=== PATIENT | female | born 2005 | race African-American/Black ===

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

== ENCOUNTER 2023-12-20 15:35 | Emergency (ER) | payer OTHER, SELFPAY ==
--- NOTE | ~2023-12-20 | XR_ITS ---
EXAMINATION: XR hand LT min 3V DATE: 12/20/2023 15:56 INDICATION: Left hand injury. TECHNIQUE: 3 views of left hand were obtained. COMPARISON: None. FINDINGS: Bone alignment is normal. No fracture. Joint spaces are normal. IMPRESSION: 1. Normal left hand. Reviewed, dictated and finalized at location A. IMPRESSION: 1. Normal left hand.
[2023-12-20 15:37] VITALS: BP 113/74; PULSE 75; RESP 16; TEMP 36.2; O2SAT 100
--- NOTE | 2023-12-20 16:23 | ED.UPPEXIN ---
HPI - Extremity Injury (Upper) General Chief Complaint: Extremity Injury, Upper Stated Complaint: L 2ND DIGIT WORK INJURY Time Seen by Provider: 12/20/23 15:52 History of Present Illness HPI narrative: Pt smashed right hand between cart and pt bed. Pt complains of right dorsal hand pain and says has trouble moving 3rd and 4th fingers due to pain. Related Data Home Medications Medication Instructions Recorded Confirmed No Home Medications 12/20/23 12/20/23 Allergies Allergy/AdvReac Type Severity Reaction Status Date / Time No Known Allergies Allergy Verified 12/20/23 15:36 Review of Systems Review of Systems: All systems reviewed & are unremarkable except as noted in HPI and below Exam Const: General: healthy appearing and no acute distress Nutritional Appearance: well nourished Orientation/consciousness: patient oriented x3 Resp: Effort & Inspection: normal respiratory effort Cardio: Rate: regular rate Rhythm: regular rhythm Skin: General skin exam: normal color Wounds: no wounds Neuro: General: patient oriented x3, moves all extremities, no meningeal signs and no focal motor deficits Speech: normal speech Extrem: General: normal to inspection and no clubbing, cyanosis or edema Other: tender dorsum of right hand no swelling. Pt able to wiggle fingers but won't fully extend due to pain. Psych: Mental Status: mental status grossly normal Affect: normal affect Attitude: cooperative Course Vital Signs Vital signs: Vital Signs Temperature 97.2 F L 12/20/23 15:37 Pulse Rate 75 12/20/23 15:37 Respiratory Rate 16 12/20/23 15:37 Blood Pressure 113/74 12/20/23 15:37 Pulse Oximetry 100 12/20/23 15:37 Oxygen Delivery Room Air 12/20/23 15:37 Temperature 97.2 F L 12/20/23 15:37 Pulse Rate 75 12/20/23 15:37 Respiratory Rate 16 12/20/23 15:37 Blood Pressure 113/74 12/20/23 15:37 Pulse Oximetry 100 12/20/23 15:37 Oxygen Delivery Room Air 12/20/23 15:37 MDM - Extremity Injury (Upper) MDM Narrative Medical decision making narrative: Pt smashed hand between cart and bed. Minimal swelling. Pt having trouble moving her fingers secondary to pain but mechanism seems unlikely to cause tendon rupture. will x ray to see if fx. x rays neg. home on otc splint and nsaids. to follow up if finger function still affected after pain improves. Discharge Plan Discharge Clinical Impression: Contusion Patient Disposition: Home, Self-Care Condition: Stable Instructions: Antibiotic Form, Hand Sprain (ED) Additional Instructions: wrist cock up splint otc and motrin 800 mg tid otc, ice and elevate. follow up with PCP if finger movement does not return when pain resolves. Prescriptions: No Action No Home Medications Follow-up/Referrals: UNKNOWN,DOCTOR [Primary Care Provider] -
== END 2023-12-20 16:54 | disposition home or self-care (01) ==
PROVIDERS: Emergency Provider Emergency Medicine
DX: S60.221A Contusion of right hand, initial encounter (principal); W23.2XXA Caught, crushed, jammed or pinched between a moving and stationary object, initial encounter
CPT/HCPCS: 73130; 99283

== ENCOUNTER 2024-01-29 11:44 | Emergency (ER) | payer SELFPAY ==
[2024-01-29 12:10] VITALS: BP 109/71; PULSE 100; RESP 16; TEMP 36.9; O2SAT 100
[2024-01-29 13:08] LABS: Strep Group A RT-PCR NOT DETECTED (Negative)
[2024-01-29 13:20] LABS: Influenza A QL RT-PCR Negative (Negative); Influenza B QL RT-PCR Negative (Negative); SARS-CoV-2 RNA PCR Positive (Negative)
--- NOTE | 2024-01-29 13:31 | ED.GENADULT ---
HPI - General Adult General Chief complaint: Upper Respiratory Infection Stated complaint: sick Time Seen by Provider: 01/29/24 13:00 History of Present Illness HPI narrative: 18-year-old female presenting to the emergency department for evaluation for sore throat cough congestion body aches and chills. Patient did have COVID exposure last week. Patient denies any significant past medical history. 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 HEAD: normocephalic, atraumatic. EYES: PERRLA/EOMI, conjunctivae clear. NOSE: Normal no drainage EARS:TMS clear with good light reflex. THROAT: Pharynx clear, no exudate. NECK: Supple. No adenopathy, no masses. RESPIRATORY: Airway patent, respirations nonlabored. Clear to auscultation bilaterally, no rales, rhonchi, wheezing. CARDIOVASCULAR: Regular rate and rhythm without murmurs rubs or gallops. ABDOMINAL: Soft, nontender, nondistended, normal bowel sounds MUSCULOSKELETAL: Moves all extremities. Strength/ROM intact, No edema, No calf tenderness. NEURO: Alert. Cranial nerves II through XII intact. Good gait. Good coordination SKIN: Warm, dry. Normal Color Course Course Emergency Course: Patient was positive for COVID. Patient was discharged home. Vital Signs Vital signs: Vital Signs Temperature 98.4 F 01/29/24 12:10 Pulse Rate 100 01/29/24 12:10 Respiratory Rate 16 01/29/24 12:10 Blood Pressure 109/71 01/29/24 12:10 Pulse Oximetry 100 01/29/24 12:10 Temperature 98.0 F 01/29/24 14:01 Pulse Rate 91 01/29/24 14:01 Respiratory Rate 20 01/29/24 14:01 Blood Pressure 103/72 01/29/24 14:01 Pulse Oximetry 100 01/29/24 14:01 Oxygen Delivery Room Air 01/29/24 14:01 Medical Decision Making MDM Narrative Medical decision making narrative: 18-year-old female presented emergency department evaluation for COVID like symptoms. Patient did test positive for COVID. Patient was provided Tessalon Perles and albuterol inhaler and discharged to home. All questions concerns were addressed patient was comfortable with plan for discharge and close follow-up. Patient was educated on reasons to return to the emergency department. Differential Diagnosis Differential Diagnosis: Pneumonia, influenza, RSV, COVID Vital Signs Vital Signs: Vital Signs Temperature 98.4 F 01/29/24 12:10 Pulse Rate 100 01/29/24 12:10 Respiratory Rate 16 01/29/24 12:10 Blood Pressure 109/71 01/29/24 12:10 Pulse Oximetry 100 01/29/24 12:10 Temperature 98.0 F 01/29/24 14:01 Pulse Rate 91 01/29/24 14:01 Respiratory Rate 20 01/29/24 14:01 Blood Pressure 103/72 01/29/24 14:01 Pulse Oximetry 100 01/29/24 14:01 Oxygen Delivery Room Air 01/29/24 14:01 Lab Data Labs: Lab Results 01/29/24 Range/Units 12:29 Influenza A (RT-PCR) Negative (Negative) Influenza B (RT-PCR) Negative (Negative) SARS-CoV-2 RNA (RT-PCR) Positive A (Negative) Group A Strep (PCR) Not detected (Negative) Discharge Plan Discharge Clinical Impression: Upper respiratory infection, COVID Patient Disposition: Home, Self-Care Condition: Stable Instructions: Antibiotic Form Additional Instructions: Tylenol and ibuprofen for fever and for body aches. Tessalon Perles for cough. Albuterol inhaler as needed for cough and shortness of breath. Have close follow-up with your primary
[2024-01-29 14:01] VITALS: BP 103/72; PULSE 91; RESP 20; TEMP 36.7; O2SAT 100
== END 2024-01-29 14:35 | disposition home or self-care (01) ==
PROVIDERS: Emergency Provider Emergency Medicine
DX: U07.1 COVID-19 (principal); J06.9 Acute upper respiratory infection, unspecified
CPT/HCPCS: 87636; 87651; 99283